=== PATIENT | female | born 1975 ===

== ENCOUNTER 2017-02-08 09:57 | Inpatient (IN) ==
[2017-02-02 10:35] LABS: Apearance,Urine CLEAR (Clear); Bacteria,Urine Occasional /HPF (Few); Bilirubin,Urine Negative (Negative); Blood, Urine Negative (Negative); Glucose,Urine (UA) >=500 mg/dL (Negative); Ketones,Urine Negative (Negative); Nitrite,Urine Negative (Negative); Protein,Urine Negative; RBC,Urine <1 /HPF (0-4); Urine Color Straw (Yellow); Urine Urobilinogen < 2.0 EU/DL (0.2-1.0); WBC,Urine <1 /HPF (0-6)
[2017-02-02 10:38] LABS: Basophils # 0.1 10*3/uL (0.0-0.2); Basophils % 0.6 % (0.0-0.8); Eosinophils # 0.3 10*3/uL (0.0-0.87); Eosinophils % 2.2 % (0.00-10.9); Hematocrit 40.5 VOL% (35.7-47.0); Hemoglobin 12.8 GM/DL (12.0-16.0); Immature Granulocytes % 0.5 %; Immature Granulocytes Absolute 0.06 #; Lymphocytes # 4.2 10*3/uL (1.4-4.0); Lymphocytes % 33.6 % (21.3-54.2); Mean Corpuscular HGB Conc 31.6 GM/DL (32-36); Mean Corpuscular Hemoglobin 28 PG (27-34); Mean Corpuscular Volume 87.1 FL (87-102); Mean Platelet Volume 9.7 FL (9.6-12.0); Monocytes # 0.8 10*3/uL (0.11-0.8); Monocytes % 6.2 % (1.7-12.7); Neutrophils # 7.1 10*3/uL (1.4-7.4); Neutrophils % 56.9 % (38.7-73.9); Platelet Count 415 T/CUMM (130-400); Red Blood Count 4.65 MC/CUMM (3.8-5.5); Red Cell Distribution Width 14.2 % (9.3-17.3); White Blood Count 12.4 T/CUMM (4-12)
--- NOTE | 2017-02-02 10:48 | EKG Report ---
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
[2017-02-02 11:08] LABS: Risk Ratio 3.7; VLDL CHOLESTEROL 22.2 MG/DL
[2017-02-02 11:09] LABS: Albumin 3.9 G/DL (3.4-5.0); Bilirubin,Total 0.6 MG/DL (0.2-1.0); Calcium 9.1 MG/DL (8.5-10.1); Osmolality,Calculated 282.5 MOS/KG (273-304); Potassium 4.9 MMOL/L (3.5-5.1); Total Protein 7.1 G/DL (6.4-8.3)
[2017-02-02 12:42] LABS: HIV Antigen/Antibody Result Nonreactive (Nonreactive)
--- NOTE | 2017-02-02 13:51 | XRay Report ---
Exam: Chest 2 views Date: February 02, 2017 at 10:41 AM Comparison: Chest x-ray portable July 21, 2009 Reason: Preoperative respiratory evaluation Findings: The cardiac silhouette is normal in size. No focal consolidation, pneumothorax or pleural effusion is identified. No acute osseous process is seen. Impression: No acute cardiopulmonary process is identified. PROCEDURE INTERPRETED AT [facility] DEPARTMENT OF RADIOLOGY Final Report Signed by: Dr. Shonda Farr
[~2017-02-08 09:57] MED LIST: AMPICILLIN/SULBACTAM 3,000 MG VIAL ONE; SODIUM CHLORIDE 0.9% 100 ML IV ONE
[2017-02-08] MEDS ORDERED: AMPICILLIN/SULBACTAM 3,000 MG in SODIUM CHLORIDE 0.9% 100 ML IV ONE (10:00)
--- NOTE | 2017-02-08 10:59 | History and Physical Update ---
History and Physical Update - History and Physical H&P was reviewed, the patient examined and there: are no changes in the patients condition since last H&P was completed.
[2017-02-08] MEDS ORDERED: FAMOTIDINE 20 MG TABLET PO STA (11:16)
[2017-02-08] MEDS ORDERED: DIAZEPAM 5 MG TABLET PO STA (11:16)
[2017-02-08] MEDS ORDERED: DIAZEPAM 5 MG TABLET ONE (11:18)
[2017-02-08] MEDS ORDERED: FAMOTIDINE 20 MG TABLET ONE (11:18)
[2017-02-08] MEDS: LACTATED RINGERS 1,000 ML IV SCH ×5 (11:30→21:30)
[2017-02-08 12:29] LABS: Apearance,Urine Slightly Hazy (Clear); Bilirubin,Urine Negative (Negative); Blood, Urine Negative (Negative); Glucose,Urine (UA) 50 mg/dL (Negative); Hyaline Casts,Urine 8 /LPF (0-3); Ketones,Urine Negative (Negative); Mucus,Urine Many /LPF (Occasional); Nitrite,Urine Negative (Negative); Protein,Urine 100 MG/DL; RBC,Urine 2 /HPF (0-4); Squamous Epithelial Cell,Urine Occasional /HPF (0-10); Urine Color Yellow (Yellow); Urine Specific Gravity 1.025 (1.001-1.035); Urine Urobilinogen < 2.0 EU/DL (0.2-1.0); WBC,Urine 1 /HPF (0-6)
[2017-02-08] MEDS ORDERED: ACETAMINOPHEN 325 MG TABLET PO PRN (14:32)
[2017-02-08] MEDS ORDERED: BENZOCAINE/MENTHOL LOZENGE 18/BOX PO PRN (14:32)
[2017-02-08] MEDS ORDERED: IBUPROFEN 800 MG TABLET PO PRN (14:32)
[2017-02-08] MEDS ORDERED: BISACODYL 10 MG SUPP RECTAL PRN (14:32)
[2017-02-08] MEDS ORDERED: MAGNESIUM HYDROXIDE SUSP 30 ML UDCUP PO PRN (14:32)
[2017-02-08] MEDS ORDERED: ONDANSETRON 4 MG/2 ML VIAL IV PRN ×2 (14:32→14:51)
[2017-02-08] MEDS ORDERED: GLUCAGON 1 MG VIAL IM PRN (14:34)
[2017-02-08] MEDS ORDERED: DEXTROSE 50% 25 GM/50 ML VIAL IV PRN (14:34)
[2017-02-08] MEDS ORDERED: NALOXONE 0.4 MG/ML VIAL IV PRN (14:34)
[2017-02-08] MEDS ORDERED: PROPOFOL 200 MG/20 ML VIAL IV ONE (14:48)
[2017-02-08] MEDS ORDERED: MIDAZOLAM 2 MG/2 ML VIAL ONE (14:49)
[2017-02-08] MEDS ORDERED: GLYCOPYRROLATE 0.4 MG/2 ML VIAL ONE (14:49)
[2017-02-08] MEDS ORDERED: ALBUMIN 5% 12.5 GM/250 ML VIAL IV ONE (14:49)
[2017-02-08] MEDS ORDERED: DESFLURANE 1 UNIT/15 MINUTE INH ONE (14:49)
[2017-02-08] MEDS ORDERED: ALBUTEROL 2.5 MG/3 ML NEB RESP TX ONE (14:49)
[2017-02-08] MEDS ORDERED: fentaNYL 100 MCG/2 ML VIAL ONE (14:49)
[2017-02-08] MEDS ORDERED: DEXAMETHASONE 10 MG/1 ML VIAL ONE (14:49)
[2017-02-08] MEDS ORDERED: ONDANSETRON 4 MG/2 ML VIAL ONE (14:49)
[2017-02-08] MEDS ORDERED: NEOSTIGMINE 10 MG/10 ML VIAL ONE (14:50)
[2017-02-08] MEDS ORDERED: ACETAMINOPHEN 1,000 MG/100 ML VIAL IV ONE (14:50)
[2017-02-08] MEDS ORDERED: LACTATED RINGERS 2,000 ML IV ONE (14:50)
[2017-02-08] MEDS ORDERED: ROCURONIUM 100 MG/10 ML VIAL IV ONE (14:50)
[2017-02-08] MEDS ORDERED: HYDROmorphone 2 MG/1 ML VIAL IV PRN (14:51)
[2017-02-08 15:11] LABS: Hematocrit 27.2 VOL% (35.7-47.0); Hemoglobin 8.6 GM/DL (12.0-16.0)
[2017-02-08] MEDS ORDERED: INSULIN REGULAR 100 UNIT/ML ONE (15:23)
[2017-02-08] MEDS ORDERED: INSULIN REGULAR 100 UNIT/ML SUBCUT ONE (15:25)
[2017-02-08] MEDS: HYDROmorphone PCA 30 MG/30 ML SYRINGE IV SCH ×2 (15:36→21:34)
[2017-02-08] MEDS ORDERED: SODIUM CHLORIDE 0.9% 250 ML IV SCH (17:00)
--- NOTE | 2017-02-08 17:54 | Operative Note ---
Date of procedure: 02/08/17 Procedure: Preoperative diagnosis: [] Pelvic pain Postoperative diagnosis: Same, pelvic adhesions, endometriosis Anesthesia: General. endotracheal anesthesia Estimated blood loss: [] 800 Surgeon: Dr. Wagoner Findings: [] Uterine varicosities, endometriosis, adhesions Complications: None Procedure: Robotic da Kale hysterectomy bilateral salpingo-oophorectomy, which was converted into a total abdominal hysterectomy and bilateral salpingo- oophorectomy. After the risk, benefits and alternatives were explained to the patient in detail and informed consent was obtained, the patient was taken to the operating room and placed in supine position. Achieving appropriate general endotracheal anesthesia, the patient was carefully repositioned in low lithotomy position in Serafin stirrups., Vagina and abdomen were prepped and draped in the usual sterile fashion. Was placed which revealed clear urine. Appropriate time out, a weighted speculum was placed in the vagina. The anterior lip of the cervix was grasped and the single-tooth tenaculum and the uterus sounded to 10 cm. A medium-sized Shira manipulator cup with a 8 cm stem with balloon occluder was attached to the Shira arch manipulator apparatus which was placed without difficulty and secured in the anterior and posterior lips of the cervix using 0 Vicryl suture. After regloving with the patient flat and an NG tube in place, a supraumbilical incision was made and while elevating on the anterior abdominal wall using a towel clip, a Veress needle was inserted through the supraumbilical incision and peritoneal space with insufflation of the abdomen with CO2 gas. The 4 mm pressure rapid insufflation was then performed to achieve a pneumoperitoneum of 5 L at 20 mm of pressure. While elevating on the anterior abdominal wall using a towel clip, a 12 mm trocar inserted through the supraumbilical incision and peritoneal space with appropriate entry confirmed by direct visualization via the laparoscope. There was no evidence of any damage to underlying structures. An 8 mm robotic trocar was placed after trans-illumination of the inferior epigastric vessels bilaterally and a 512 step trocar was placed in the left upper quadrant also under direct visualization without complications the patient was then placed in Trendelenburg and the da Kale robot successively side docked. The rest of the procedure was performed through the robotic console. On visualization of the pelvis[], both ureters were identified. The utero-ovarian ligaments were identified bilaterally and taken down using PK bipolar and monopolar scissors and double burn techniques and this was carried out to the round ligaments bilaterally on maintaining cephalic traction on the Shira manipulator. The bladder flap was created anterior along the lower uterine segment using monopolar scissors. And the uterine vessels were skeletonized bilaterally and dissected. The broad ligament was also dissected as well under direct visualization. The uterine vessels were taken down there was a significant number of uterine vessels that were dilated. And there was continuous bleeding from these vessels. Multiple attempts to use the vessel sealer, the bipolar forceps was unsuccessful to control the bleeding. Visualization was very difficult and it was also very difficult to use the handheld manipulator for the uterus to for adequate exposure. Because of the significant blood loss this part of the procedure was terminated and converted into a open procedure. The da Kale was undocked the patient was placed in supine position and we then proceeded to perform a open hysterectomy through a Pfannenstiel incision. Through the skin subcutaneous with a fascial erect abdominal muscle split in the midline abdominal pain was in her self-retaining retractor was then placed aside. The bowel was packed operative field. The uterus was grasped with a Issa tenaculum. Straight Farrah clamp was used along the remaining portion of the broad ligament. They were clamped cut and suture leg #1 Vicryl the cervical vaginal junction was identified. And cauterization was then performed at this time creating an opening into the vaginal vault scissors was then used to create the opening and extended all the way around circumscribing the cervix away from the vagina. There was liters that were noted in the pedicles from the from the laparoscopic procedure with these were also grasped clamped and also ligated with #2 Vicryl. And also with cauterization. The vaginal cuff were grasped at the angles with Allis clamps. They were closed with #1 Vicryl continuous locking stitch. Hemostasis was maintained irrigation was performed throughout the pelvic cavity there was some small raw surfaces that were also bleeding and a small vessel that was part of the lower uterine vessels that was also grasped with a Farrah clamp and ligated with #2-0 Vicryl. All the lap sponges were accounted for abdominal. Includes #2-0 Vicryl the fascia is proximal 0 Maxon and the skin was approximated with insulin sanjay. The puncture sites were identified there was no active bleeding and these were closed with sanjay. The urine was clear throughout the entire procedure this patient tolerated procedure well. She was explained the operative may take her room in stable condition. Surgeon / Physician: hSashi Wagoner Results - Labs CBC & BMP: 02/08/17 15:05 02/02/17 10:24 Discharge Plan - Discharge Medications No Action Cholecalciferol (Vitamin D3) [Vitamin D3] 10,000 unit PO Q7DAY Insulin Detemir [Levemir] 50 unit SUBCUT BEDTIME Insulin Aspart [NovoLOG] 7 unit SUBCUT BID Metformin HCl 500 mg PO BID Lisinopril 10 mg PO AC SUPPER - Follow Up or Referral - Forms/Instructions
[2017-02-08] MEDS ORDERED: INSULIN REGULAR 100 UNIT/ML SUBCUT SCH (18:00)
[2017-02-08] MEDS ORDERED: MEPERIDINE 25 MG/1 ML VIAL IV PRN (18:01)
[2017-02-08] MEDS ORDERED: MEPERIDINE 25 MG/1 ML VIAL ONE (18:03)
[2017-02-08] MEDS: INSULIN REGULAR 100 UNIT/ML SUBCUT SCH (20:21)
[2017-02-08 22:43] LABS: Hematocrit 35.6 VOL% (35.7-47.0); Hemoglobin 11.6 GM/DL (12.0-16.0)
[2017-02-09] MEDS: INSULIN REGULAR 100 UNIT/ML SUBCUT SCH ×4 (02:28→20:48)
[2017-02-09] MEDS: LACTATED RINGERS 1,000 ML IV SCH (04:25)
[2017-02-09 06:34] LABS: Basophils % 0.2 % (0.0-0.8); Eosinophils % 0.1 % (0.00-10.9); Hematocrit 32.2 VOL% (35.7-47.0); Hemoglobin 10.7 GM/DL (12.0-16.0); Immature Granulocytes % 0.7 %; Immature Granulocytes Absolute 0.12 #; Lymphocytes # 2.6 10*3/uL (1.4-4.0); Lymphocytes % 16.3 % (21.3-54.2); Mean Corpuscular HGB Conc 33.2 GM/DL (32-36); Mean Corpuscular Hemoglobin 28 PG (27-34); Mean Corpuscular Volume 83.6 FL (87-102); Mean Platelet Volume 9.5 FL (9.6-12.0); Monocytes % 12.6 % (1.7-12.7); Neutrophils # 11.3 10*3/uL (1.4-7.4); Neutrophils % 70.1 % (38.7-73.9); Platelet Count 263 T/CUMM (130-400); Red Blood Count 3.85 MC/CUMM (3.8-5.5); Red Cell Distribution Width 14.5 % (9.3-17.3); White Blood Count 16.2 T/CUMM (4-12)
[2017-02-09] MEDS: ceFAZolin 2,000 MG in PREMIX 1 EACH IV SCH ×3 (07:54→20:00)
--- NOTE | 2017-02-09 10:37 | Progress Note ---
Family Medicine PN Sub Interval history: Postoperative day #1 Status post abdominal hysterectomy, transfusion of 2 units of packed RBCs Abdominal incision looks great no evidence of hematoma or active bleeding. Extremities well within normal limits neurologic grossly intact Urine output is excellent Postoperative H&H is 10.7 and 32 Patient is tolerating clear liquids This patient will be ambulating today and, increasing her diet and will be initiated on iron therapy Exam (Progress Note) - Constitutional Vitals: Period Temp Pulse Resp BP Sys/Dillon Pulse Ox Last 24 Hr 97 F-98 F 72-99 16-20 93-143/53-85 97-100 Results - Labs CBC & BMP: 02/09/17 06:26 02/02/17 10:24 Quality Measures - VTE Contraindication to Pharmacological VTE Prophylaxis: Clinical assessment deems Pt at low risk, no prophalaxis needed
--- NOTE | 2017-02-09 12:26 | Pathology Report from [facility] ---
ACCESSION # : [id number] PATIENT NAME : Argelia Armijo ORDERING DR : KATELYNN POND MD CLINICAL HX: Pelvic pain - DUB - Fibroids POST-OP DX: Same SPECIMEN INFO: Uterus, cervix, right and left tubes and ovaries GROSS DESCRIPTION: The specimen is received in formalin labeled with the patient 's name "ARGELIA ARMIJO" and consists of a 146 gram uterus and cervix which measures 4.0 x 3.5 x 3.8 cm. The serosa is red-brock with a few adhesions noted. The cervix measures 3.7 cm. The cervical os measures 0.6 cm. The endocervical canal is brock and patent. The endometrial cavity is hemorrhagic with a mucosal thickness of 0.3 cm. Sectioning reveals changes which are possibly consistent with adenomyosis. The right ovary is yellow-red measuring 3.5 x 2.0 cm. Sectioning reveals a 0.8 cm hemorrhagic corpus luteum. The adjacent fallopian tube is fimbriated and has been previously transected. The tube measures 5.0 x 2.7 cm. The left ovary is yellow-pink measuring 2.2 x 2.3 cm. Sectioning reveals a 0.2 cm hemorrhagic cyst. The adjacent fallopian tube is fimbriated and has been previously transected. The tube measures 6.5 x 0.8 cm. Sections submitted: A cervix, B and C endomyometrium, D serosal adhesions , E right ovary and tube, F left ovary and tube. DIAGNOSIS FOR ARGELIA ARMIJO: UTERUS, HYSTERECTOMY: Chronic cervicitis with squamous metaplasia. Proliferative endometrium. Adenomyosis. Hemorrhagic corpus luteum cysts. Subcortical follicular cysts. Unremarkable fallopian tubes. SERVICE DATE: 02/08/2017 REPORT DATE: 02/09/2017 PATHOLOGIST: Rosa Hazel III, M.D. MTDD
[2017-02-09] MEDS ORDERED: oxyCODONE/ACETAMINOPHEN 5-325 MG TABLET PO PRN (13:39)
[2017-02-09] MEDS ORDERED: GLUCAGON 1 MG VIAL IM PRN (13:39)
[2017-02-09] MEDS ORDERED: DEXTROSE 50% 25 GM/50 ML VIAL IV PRN (13:39)
[2017-02-09] MEDS: FERROUS SULFATE 325 MG TABLET PO SCH (20:30)
[2017-02-09] MEDS: DOCUSATE SODIUM 100 MG CAPSULE PO PRN (20:30)
[2017-02-10] MEDS: ceFAZolin 2,000 MG in PREMIX 1 EACH IV SCH (02:30)
[2017-02-10] MEDS: INSULIN REGULAR 100 UNIT/ML SUBCUT SCH ×4 (02:40→20:35)
[2017-02-10] MEDS: oxyCODONE/ACETAMINOPHEN 5-325 MG TABLET PO PRN ×3 (02:45→14:35)
[2017-02-10] MEDS: FERROUS SULFATE 325 MG TABLET PO SCH ×2 (08:50→20:00)
[2017-02-10] MEDS ORDERED: METOCLOPRAMIDE 10 MG/2 ML VIAL ONE (09:48)
[2017-02-10] MEDS: METOCLOPRAMIDE 10 MG/2 ML VIAL IV SCH ×2 (10:16→18:49)
[2017-02-10] MEDS: FUROSEMIDE 40 MG/4 ML VIAL IV SCH ×2 (10:17→16:17)
[2017-02-10] MEDS ORDERED: GLUCAGON 1 MG VIAL IM PRN (15:59)
[2017-02-10] MEDS ORDERED: DEXTROSE 50% 25 GM/50 ML VIAL IV PRN (15:59)
[2017-02-10] MEDS: DOCUSATE SODIUM 100 MG CAPSULE PO PRN (20:00)
[2017-02-11] MEDS: INSULIN REGULAR 100 UNIT/ML SUBCUT SCH ×2 (02:33→08:04)
[2017-02-11] MEDS: METOCLOPRAMIDE 10 MG/2 ML VIAL IV SCH ×2 (02:35→09:56)
[2017-02-11 07:21] VITALS: BP 118/74
--- NOTE | 2017-02-11 08:51 | Discharge Summary ---
Hospital Course - Hospital Course Hospital Course: Postop day #3 Status post failed robotic hysterectomy, subsequent subsequently went an open DOROTHY/BSO. Postoperatively this patient received packed RBCs., She has had multiple bowel movements, she voided well, denies any chest pain palpitations or shortness of breath. Incision sites are intact Extremities well within normal limits neurologic grossly intact Status post hysterectomy will follow up in our office approximately 2 weeks. Specialty Discharge - Follow Up or Referrals Follow up with: Shashi Wagoner MD [Physician] - Discharge Plan - Discharge Data Condition at Discharge: Stable Discharge Diet: advance to your usual diet Activity: resume usual activities as tolerated, ambulate only with your walker, increase activity as tolerated Hygiene: may shower Driving: not until seen by doctor Contact your physician if you experience:: fever over 101, Shortness of breath, Bleeding - Discharge Medications New Ferrous Sulfate Tab [Feosol Original Tab] 325 mg PO BID #60 tablet Ibuprofen Tab [Motrin Tab] 800 mg PO Q8H PRN #60 tablet PRN Reason: Pain Mild To Moderate (1-7) HYDROcodone/ACETAMIN 5-325 [[place] 5-325] 2 tablet PO Q4H PRN #40 tablet PRN Reason: Pain Moderate (4-7) No Action Cholecalciferol (Vitamin D3) [Vitamin D3] 10,000 unit PO Q7DAY Insulin Detemir [Levemir] 50 unit SUBCUT BEDTIME Insulin Aspart [NovoLOG] 7 unit SUBCUT BID Metformin HCl 500 mg PO BID Lisinopril 10 mg PO AC SUPPER - Follow Up or Referral Follow Up: Shashi Wagoner MD [Physician] - - Forms/Instructions Instructions: Abdominal Hysterectomy (DC), Surgical Site Infections (GEN) Exam - Constitutional Vitals: Period Temp Pulse Resp BP Sys/Dillon Pulse Ox Last 24 Hr 97.1 F-99.5 F 92-118 18-20 107-118/62-74 97-99 Discharge Results Labs on day of discharge: Labs from last 24 hours 02/11/17 02/11/17 02/10/17 07:41 02:25 20:29 POC Glucose 194 H 162 H 295 H 02/10/17 14:27 POC Glucose 198 H DS: Provider Date of admission: 02/08/17 14:31 Primary care physician: Jus Reardon MD Attending physician on admission: Shashi Wagoner MD Consults: 02/08/17 16:39 Consult to Pharmacy [CONS] Routine Reason for Pharmacy Consult: Adjust Meds Renal Funct Discharging clinician: Shashi Wagoner MD
[2017-02-11] MEDS: oxyCODONE/ACETAMINOPHEN 5-325 MG TABLET PO PRN (09:50)
[2017-02-11] MEDS: FERROUS SULFATE 325 MG TABLET PO SCH (09:57)
--- NOTE | 2017-02-12 08:11 | Physician Query Form ---
CLICK EDIT DOCUMENT TO SELECT QUERY ANSWER --> OK --> SIGN Juanita Dang RN Clinical [employer] W) [phone] (f) [phone] [email or web address] PROVIDERS: Make your selection(s) from the choices in EACH section by typing an "x" and enter comments in the comment section. Please use your independent medical judgment in providing your response. This request does not imply that any particular answer is desired or expected. CLINICAL INDICATORS: (Providers should not edit this section) Based on documentation of "number of uterine vessels that were dilated. And there was continuous bleeding from these vessels. Multiple attempts to use the vessel sealer, the bipolar forceps was unsuccessful to control the bleeding. Visualization was very difficult and it was also very difficult to use the handheld manipulator for the uterus to for adequate exposure. Because of the significant blood loss this part of the procedure was terminated and converted into a open procedure." Transfused 2 units of PRBC Based on the above, could you clarify the appropriate diagnosis, if significant , that supports the above abnormalities and additional evaluation, monitoring, and/or treatment rendered: ( ) Acute blood loss anemia ( ) Did NOT have acute blood loss anemia ( ) Other, please specify: ( ) Clinically unable to determine COMMENTS: Use of terms such as suspected, likely, or probable (associated with a specific diagnosis that is being evaluated, monitored, or treated as if it exists) are acceptable and can be restated in the discharge summary if not ruled out. MTDD
== END 2017-02-11 13:40 | disposition home or self-care (01) | DRG 742 ==
LOC: N.OR 09:57 → N.SDSINP 10:36 → N.OB 14:31
PROVIDERS: ADMIT Obstetrics & Gynecology; ATTEND Obstetrics & Gynecology

== ENCOUNTER 2017-05-26 22:05 | Inpatient (IN) ==
--- NOTE | 2017-05-26 22:49 | Emergency Department Note ---
IAlbina Emily, am scribing for, and in the presence of, Waqar Emmanuel MD 22: 46. Cholo Khan Robert M, MD, personally performed the services described in this documentation, ascribed by Nanci Montemayor in my presence, and it is both accurate and complete . Arrival - Arrival Chief Complaint: Neuro ED Nursing Triage Note: Patient is a transfer from [facility] for further evaluation of left sided face numbness and headache with an onset of three hours ago. Patient has since resolved and denies any other complaints at the time of triage. History of DM. Mode of Arrival: Ambulatory Limitations: No Limitations - History of Present Illness HPI Narrative: Pt is a 42 y/o female who was transferred from [facility] for further evaluation of weakness in all extremities and numbness to left side of body that happened when leaving [facility] at 4pm today. Pt notes the numbness started in the left side of nose, into her mouth (lips & tongue), neck, shoulder, arm and leg. She noticed her speech wasn't the same and missing certain letters when pronounced, along with unable to lift objects. Pt denies abnormal gait or any N/V with episode, in which she states it lasted 3 hours (until 7pm). 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 Onset (ago): hour(s) Consistency: intermittent, now resolved Severity: mild, moderate Severity scale (1-10): 4 Date of Last Menstrual Period: hysterectomy Allergies/Adverse Reactions: Allergies Allergy/AdvReac Type Severity Reaction Status Date / Time No Known Allergies Allergy Verified 02/08/17 10:48 Home Medications: Home Medications Medication Instructions Recorded Confirmed Type Cholecalciferol (Vitamin D3) 10,000 unit PO Q7DAY 02/02/17 02/08/17 History [Vitamin D3] Insulin Aspart [NovoLOG] 7 unit SUBCUT BID 02/02/17 02/08/17 History Insulin Detemir [Levemir] 50 unit SUBCUT BEDTIME 02/02/17 02/08/17 History Lisinopril 10 mg PO AC SUPPER 02/02/17 02/08/17 History Metformin HCl 500 mg PO BID 02/02/17 02/08/17 History Ferrous Sulfate Tab [Feosol 325 mg PO BID #60 tablet 02/11/17 Rx Original Tab] HYDROcodone/ACETAMIN 5-325 [[place] 2 tablet PO Q4H PRN #40 tablet 02/11/17 Rx 5-325] Ibuprofen Tab [Motrin Tab] 800 mg PO Q8H PRN #60 tablet 02/11/17 Rx Review of System - Review of System 12 point system: reviewed and no additional remarkable complaints except as stated - Review of System Constitutional: Absent: chills, fever, weakness Respiratory: Absent: cough, respiratory distress Cardiovascular: Absent: chest pain, syncope Gastrointestinal: Absent: abdominal pain, nausea, vomiting Neurological: Present: headache (mild), weakness (now resolved but all extremities), numbness (left side of body, now resolved), other (different speech). Absent: paresthesias, confusion, abnormal gait Medical,Surgical,& Family Hx - Medical History Cardio: History of: Hypertension Neurology: No history of: Seizures HEENT: History of: Eye Problem (glasses), Dental Problems (bridge) Endocrine: History of: Diabetes Mellitus (IDDM), Diabetes Mellitus (NIDDM) Genitourinary: History of: Problems (hx hematuria too much protein dr silva last check up was fine) - Surgical History Reproductive Surgeries: Surgical HX of;: Section (x3), Gynecologic Surgery, Hysterectomy (02/08/17) - Family History Family History: Reports;: Family Diabetes (grandmother), Family Hypertension ( grandmother mom) - Social History Smoking Status: Current every day smoker Frequency of Alcohol Use: None Type of Drug Use: None Functional capacity: independent ambulation Exam Vital Signs: Vital Signs Temperature 97.3 F L 05/26/17 22:10 Pulse Rate 78 05/26/17 22:10 Respiratory Rate 20 05/26/17 22:10 Blood Pressure 115/73 05/26/17 22:10 O2 Sat by Pulse Oximetry 96 05/26/17 22:10 - General General appearance: alert, in no apparent distress - Head Head exam: Present: atraumatic, normocephalic - Eye Eye exam: Present: PERRL, EOMI - ENT ENT exam: Present: normal oropharynx, mucous membranes moist. Absent: mucous membranes dry - Neck Neck exam: Present: full ROM, trachea midline. Absent: tenderness - Chest Chest inspection: Present: symmetric chest wall rise. Absent: tenderness - Respiratory Respiratory exam: Present: normal lung sounds bilaterally. Absent: accessory muscle use, respiratory distress - Cardiovascular Cardiovascular exam: Present: regular rate, normal rhythm, normal heart sounds - Abdominal Exam Abdominal exam: Present: soft, normal bowel sounds. Absent: tenderness - Extremities Exam Extremities exam: Present: full ROM. Absent: tenderness, pedal edema - Neurological Exam Neurological exam: Present: alert, oriented X3, CN II-XII intact. Absent: motor sensory deficit - Psychiatric Psychiatric exam: Present: normal affect, normal mood - Skin Skin exam: Present: warm, dry Course - Reevaluation(s) Reevaluation #1: The patient is clinically stable and there is no reason for her to be in the emergency department to wait for labs of another patient. I am going to admit her to telemetry under Dr. Jasmine's care and the floor can notify her of the arrival of the patient. Time: 22:58 - Consultations Consultation #1: I called Dr. Sher to admit the patient and she wants me to wait until labs on a separate patient are completely back before I call her for this patient. Time: 22:50 Time: 22:57 Disposition Clinical Impression: TIA (transient ischemic attack) Case discussed with: patient, patient's family Disposition: Still a Patient Condition: Stable Time of Disposition: 22:58
[2017-05-26] MEDS ORDERED: ONDANSETRON 4 MG/2 ML VIAL IV PRN (22:59)
[2017-05-26] MEDS ORDERED: ACETAMINOPHEN 500 MG TABLET PO PRN (22:59)
--- NOTE | 2017-05-27 00:10 | Hospitalist History & Physical ---
Assessment and Plan (1) TIA (transient ischemic attack) Status: Acute Assessment and plan: Patient had a left sided numbness, and bilateral leg weakness, all which have resolved leaving a residual mild headaches. These symptoms may also be due to possibly Migraine headaches to r/o pseudotumor cerebri Plan Stroke work up MRI/Bilateral carotid USS ASA Lovenox Pain meds Echo Lipids TSH, Vit B12, folate levels Neuro consult in am Cardiac enzymes Current Visit: Yes (2) Diabetes mellitus Status: Acute Assessment and plan: Resume home meds, SSC, accu cheks HbA1c level Current Visit: Yes (3) Smoking Status: Acute Assessment and plan: Counseled to quit Nicotine patch Current Visit: Yes (4) Headache Status: Acute Assessment and plan: Patient had been having recurrent headaches x1 month. ? Migraines to r/o pseudotumor cerebri Plan Neuro to evaluate jose meds/ anti emetics Current Visit: Yes History of Present Illness Chief complaint: left sided nubness, headaches History of present illness: Ms. Felix is a 42 year old female with a history of diabetes, known smoker , mildly obese, s/p hysterectomy on oral contraceptives who was transferred from [facility] for evaluation of left sided numbness and bilateral leg weakness. Patient states she has been having a headache daily for about 1month. Today at around 4-4.30pm, she noticed her legs were weak.Later on, her left face became numb and numbness then spread to her left neck, arm and leg. She also noticed her speech wasn't the same though she had no problem swallowing.She had a headache throughout the episode. She had a similar episode last week Wednesday and she said she slept it off. She denies a history of migraine headaches, no history of TIA vs stroke in the past. No history of dizziness, nausea, vomiting , chestpain or tightness.By the time I saw her in the ER, the symptoms had improved leaving a mild headache. CT head done at the outside facility showed no acute changes. UDS, electrolytes, cardiac enzymes, UA, EKG were all unremarkable. She was given some pain meds, zofran and protonix here in the ER. Home Medications Medication Instructions Recorded Confirmed Type Cholecalciferol (Vitamin D3) 10,000 unit PO Q702/02/17 05/26/17 History [Vitamin D3] Insulin Aspart [NovoLOG] 7 unit SUBCUT BID 02/02/17 05/26/17 History Insulin Detemir [Levemir] 50 unit SUBCUT BEDTIME 02/02/17 05/26/17 History Lisinopril 10 mg PO AC SUPPER 02/02/17 05/26/17 History Metformin HCl 500 mg PO BID 02/02/17 05/26/17 History Ferrous Sulfate Tab [Feosol 325 mg PO BID #60 tablet 02/11/17 05/26/17 Rx Original Tab] HYDROcodone/ACETAMIN 5-325 [[place] 2 tablet PO Q4H PRN #40 tablet 02/11/17 Rx 5-325] Ibuprofen Tab [Motrin Tab] 800 mg PO Q8H PRN #60 tablet 02/11/17 05/26/17 Rx Allergies Allergy/AdvReac Type Severity Reaction Status Date / Time No Known Allergies Allergy Verified 02/08/17 10:48 Medical,Surgical,& Family Hx - Medical History Cardio: History of: Hypertension Neurology: No history of: Seizures HEENT: History of: Eye Problem (glasses), Dental Problems (bridge) Endocrine: History of: Diabetes Mellitus (IDDM), Diabetes Mellitus (NIDDM) Genitourinary: History of: Problems (hx hematuria too much protein dr silva last check up was fine) - Surgical History Reproductive Surgeries: Surgical HX of;: Section (x3), Gynecologic Surgery, Hysterectomy (02/08/17) - Family History Family History: Reports;: Family Diabetes (grandmother), Family Hypertension ( grandmother mom) - Social History Smoking Status: Current every day smoker Frequency of Alcohol Use: None Type of Drug Use: None 12 point system: reviewed and no additional remarkable complaints except as stated Exam - Constitutional Vitals: Period Temp Pulse Resp BP Sys/Dillon Pulse Ox Last 24 Hr 97.3 F-97.3 F 78-78 18-20 115-115/73-73 96 General appearance: no acute distress - Eye Eye exam: Present: EOMI - Respiratory Respiratory exam: Present: clear to auscultation bilaterally - Cardiovascular Cardiovascular exam: Present: regular rate and rhythm - GI/Abdominal GI/Abdominal exam: Present: normal bowel sounds - Extremities Exam Extremities exam: Present: normal inspection - Neurological Exam Neurological exam: Present: alert, oriented X3 Results - Labs Lab Results: I have reviewed the past 24 hour labs
[2017-05-27] MEDS ORDERED: MORPHINE 2 MG/1 ML SYRINGE IV PRN (00:43)
[2017-05-27] MEDS ORDERED: GLUCAGON 1 MG VIAL IM PRN ×2 (00:43→09:17)
[2017-05-27] MEDS ORDERED: ONDANSETRON 4 MG/2 ML VIAL IV PRN (00:43)
[2017-05-27] MEDS ORDERED: DEXTROSE 50% 25 GM/50 ML VIAL IV PRN ×2 (00:43→09:17)
[2017-05-27 01:46] LABS: Troponin I Only < 0.015 NG/ML (0.00-0.045)
[2017-05-27 01:59] LABS: Risk Ratio 4.08; VLDL CHOLESTEROL 39.2 MG/DL
[2017-05-27 05:19] LABS: Basophils # 0.1 10*3/uL (0.0-0.2); Basophils % 0.6 % (0.0-0.8); Eosinophils # 0.3 10*3/uL (0.0-0.87); Eosinophils % 3.2 % (0.00-10.9); Hematocrit 39.1 VOL% (35.7-47.0); Hemoglobin 12.9 GM/DL (12.0-16.0); Immature Granulocytes % 0.3 %; Immature Granulocytes Absolute 0.03 #; Lymphocytes # 4.2 10*3/uL (1.4-4.0); Lymphocytes % 40.6 % (21.3-54.2); Mean Corpuscular Hemoglobin 28 PG (27-34); Mean Corpuscular Volume 84.1 FL (87-102); Mean Platelet Volume 9.9 FL (9.6-12.0); Monocytes # 0.9 10*3/uL (0.11-0.8); Monocytes % 8.9 % (1.7-12.7); Neutrophils # 4.8 10*3/uL (1.4-7.4); Neutrophils % 46.4 % (38.7-73.9); Platelet Count 352 T/CUMM (130-400); Red Blood Count 4.65 MC/CUMM (3.8-5.5); Red Cell Distribution Width 13.9 % (9.3-17.3); White Blood Count 10.3 T/CUMM (4-12)
[2017-05-27 05:52] LABS: Alanine Aminotransferase 26 U/L (13-56); Albumin 3.5 G/DL (3.4-5.0); Alkaline Phosphatase 89 U/L (45-117); Aspartate Amino Transferase 18 U/L (0-37); Blood Urea Nitrogen 9 MG/DL (7-18); Glucose 181 MG/DL (74-106); Osmolality,Calculated 284.3 MOS/KG (273-304); Potassium 4.4 MMOL/L (3.5-5.1); Sodium 141 MMOL/L (136-145); Total Protein 6.8 G/DL (6.4-8.3); Troponin I Only < 0.015 NG/ML (0.00-0.045)
[2017-05-27 06:20] LABS: Apearance,Urine CLEAR (Clear); Bilirubin,Urine Negative (Negative); Blood, Urine Negative (Negative); Glucose,Urine (UA) Negative (Negative); Ketones,Urine Negative (Negative); Nitrite,Urine Negative (Negative); Protein,Urine Negative; RBC,Urine <1 /HPF (0-4); Squamous Epithelial Cell,Urine Occasional /HPF (0-10); Urine Color Straw (Yellow); Urine Specific Gravity 1.006 (1.001-1.035); Urine Urobilinogen < 2.0 EU/DL (0.2-1.0); WBC,Urine <1 /HPF (0-6)
[2017-05-27] MEDS: INSULIN REGULAR 100 UNIT/ML SUBCUT SCH ×3 (06:31→18:06)
--- NOTE | 2017-05-27 07:28 | Ultrasound Report ---
Exam:US carotid duplex BI Date:05/27/2017 12:43 AM Indication: TIA Color Doppler, wave form analysis, and grayscale analysis of the cervical carotid arteries was performed. There is no significant plaque in either carotid bulb. Waveform analysis shows proper directional flow of the cervical carotid arteries. There is antegrade flow in either vertebral artery. The distal right ICA measures 4.4 mm diameter; the left measures 4.0 mm diameter. Right Side Flow velocities centimeters per second Common carotid artery: 69 Proximal ICA:87.2 Distal ICA:101.5 External carotid artery:62.4 Vertebral artery:49.4 ICA/CCA ratio:1.5 Left SIde Flow velocities centimeters per second Common carotid artery 68 Proximal ICA:81.9 Distal ICA:71.5 External carotid artery:74.1 Vertebral artery:41.6 ICA/CCA ratio:1.2 There is 0-15% diameter reduction narrowing of either internal carotid artery using indirect NASCET criteria. Ultrasound images were captured and archived. Impression: No hemodynamically significant internal carotid artery stenosis PROCEDURE INTERPRETED AT [facility] DEPARTMENT OF RADIOLOGY Final Report Signed by: Dr. Kerri Szymanski
[2017-05-27] MEDS: PANTOPRAZOLE 40 MG TABLET PO SCH (09:01)
[2017-05-27] MEDS: ENOXAPARIN 40 MG/0.4 ML SYRINGE SUBCUT SCH (09:01)
[2017-05-27] MEDS: ASPIRIN 325 MG TABLET PO SCH (09:01)
[2017-05-27] MEDS: FERROUS SULFATE 325 MG TABLET PO SCH ×2 (09:01→21:30)
--- NOTE | 2017-05-27 11:32 | Magnetic Resonance Report ---
Exam: MR head/brain wo con Date: 05/27/2017 Comparison: CT brain 05/26/2017 Indication: TIA Technical: 1.5 Avis magnet Axial T1 pre-and , ADC, DWI, FLAIR, gradient echo and FSE T2 Sagittal T1 precontrast, FLAIR Coronal FSE T2 Contrast: 0 cc Dotarem Findings: Exam reveals no acute ADC/ diffusion imaging abnormality. The brainstem exhibit normal signal characteristics. The cerebellum reveals suggestion of minimal cerebellar ectopia The cerebral hemispheres exhibit normal signal characteristics. The corpus callosum is unremarkable. The seventh and eighth cranial nerves and cerebral pontine angles are intact. The pituitary gland is flattened with component of intrasella syndrome present. The infundibulum and optic chiasm are unremarkable.. The paranasal sinuses exhibit minimal inflammation in the ethmoid sinuses bilaterally. Remaining paranasal sinuses demonstrate normal signal characteristics. The mastoid sinuses are unremarkable. The globes and intra-and extraconal spaces are unremarkable. Impression: 1. Minimal cerebellar ectopia 2. No obvious acute hemorrhage, infarction or mass effect. 2. Minimal inflammation in the ethmoid sinuses. 3. No obvious syrinx demonstrated in the proximal cord 4. Component of empty sella syndrome PROCEDURE INTERPRETED AT [facility] DEPARTMENT OF RADIOLOGY Final Report Signed by: Dr. Santos Stafford
--- NOTE | 2017-05-27 14:14 | Hospitalist Progress Note ---
Assessment and Plan (1) TIA (transient ischemic attack) Status: Acute Assessment and plan: Workup underway. Follow-up echo follow carotids follow-up MRI Current Visit: Yes (2) Diabetes mellitus Status: Acute Assessment and plan: Hemoglobin A1c 8.9 Current Visit: Yes (3) Smoking Status: Acute Current Visit: Yes Hospitalist: Subjective Interval history: Patient seen and examined. No acute events overnight. Case discussed with nursing staff. Labs reviewed. Patient admitted for TIA symptoms. MRI and carotid and echo pending. Symptoms have resolved. Exam - Constitutional Vitals: Period Temp Pulse Resp BP Sys/Dillon Pulse Ox Last 24 Hr 97 F-97.8 F 76-82 18-20 96-137/52-77 96-100 Exam: Constitutional System: No distress. No tremulousness. Head: Normocephalic, atraumatic. Ears, Nose and Throat System: No pain or tenderness. No epistaxis or discharge Eyes System: Pupils equal, round, and reactive. Extraocular muscles intact. Neck: Supple, without adenopathy, No jugular venous distention. No thyromegaly, neck mass, or prior surgery apparent. Respiratory System: Chest clear to auscultation. Cardiovascular System: Heart with regular rate and rhythm. No murmur. GI System: Abdomen soft, nontender. Normo active bowel sounds present. Musculoskeletal System: limbs with no pedal edema. Full distal pulses. Neurological System: No discernable sensory deficit. No aphasia Psychiatric System: Conversation is rational Results - Labs CBC & BMP: 05/27/17 05:00 05/27/17 05:00 Lab Results: I have reviewed the past 24 hour labs
--- NOTE | 2017-05-27 16:38 | Neurology Consult Note ---
History of Present Illness History of present illness: Ms. Felix is a 42 year old lady with a history of diabetes , known smoker, mildly obese, s/p hysterectomy on oral contraceptives who was transferred from [facility] for evaluation of left sided numbness and bilateral leg weakness. Patient states she has been having a headache daily for about 1month. Today at around 4-4.30pm, she noticed her legs were weak.Later on, her left face became numb and numbness then spread to her left neck, arm and leg. She also noticed her speech wasn't the same though she had no problem swallowing.She had a headache throughout the episode. She had a similar episode last week Wednesday and she said she slept it off. She had similar episode 10 years ago. She denies a history of migraine headaches, no history of TIA vs stroke in the past. Symptoms resolved and 4 hours. She has no more numbness and tingling. She is back to her baseline. MRI of the brain reveals no acute abnormalities but questionable empty sella syndrome Home Medications Medication Instructions Recorded Confirmed Type Cholecalciferol (Vitamin D3) 10,000 unit PO Q7DAY 02/02/17 05/26/17 History [Vitamin D3] Insulin Aspart [NovoLOG] 7 unit SUBCUT BID 02/02/17 05/26/17 History Insulin Detemir [Levemir] 50 unit SUBCUT BEDTIME 02/02/17 05/26/17 History Lisinopril 10 mg PO AC SUPPER 02/02/17 05/26/17 History Metformin HCl 500 mg PO BID 02/02/17 05/26/17 History Ferrous Sulfate Tab [Feosol 325 mg PO BID #60 tablet 02/11/17 05/26/17 Rx Original Tab] HYDROcodone/ACETAMIN 5-325 [[place] 2 tablet PO Q4H PRN #40 tablet 02/11/17 Rx 5-325] Ibuprofen Tab [Motrin Tab] 800 mg PO Q8H PRN #60 tablet 02/11/17 05/26/17 Rx Allergies Allergy/AdvReac Type Severity Reaction Status Date / Time No Known Allergies Allergy Verified 02/08/17 10:48 12 point system: reviewed and no additional remarkable complaints except as stated Medical,Surgical,& Family Hx - Medical History Cardio: History of: Hypertension Neurology: No history of: Seizures HEENT: History of: Eye Problem (glasses), Dental Problems (bridge) Endocrine: History of: Diabetes Mellitus (IDDM), Diabetes Mellitus (NIDDM) Genitourinary: History of: Problems (hx hematuria too much protein dr silva last check up was fine) - Surgical History Reproductive Surgeries: Surgical HX of;: Section (x3), Gynecologic Surgery, Hysterectomy (02/08/17) - Family History Family History: Reports;: Family Diabetes (grandmother), Family Hypertension ( grandmother mom) - Social History Smoking Status: Current every day smoker Frequency of Alcohol Use: None Type of Drug Use: None Exam - Constitutional Vitals: Period Temp Pulse Resp BP Sys/Dillon Pulse Ox Last 24 Hr 97 F-97.8 F 76-82 18-20 96-137/52-77 96-100 Exam: GENERAL: Patient is in no acute distress. NECK: Neck is supple. There is no JVD. No carotid bruits present. No thyroid masses. CVS: First and second heart sounds are normal. There is no S3 present. Regular rate and rhythm. RESPIRATORY: Lungs are clear to auscultation without any rales or rhonchi. ABDOMEN: Soft and non-tender. Bowel sounds are present. There is no hepatosplenomegaly. EXT: There is no palpable edema. Peripheral pulses are present. Skin: No rashes Central Nervous system: General: Alert, awake and Oriented x 3 Speech: Fluent Comprehension: Intact and normal Facial expressions: Normal Cranial Nerves: CN1/Olfactory: Normal CN II/ Optic: Normal, Visual Sharpe unreliable CN III, and : JESSICA & EOMI CN V: Normal & intact CN VII: face is symmetric CNVIII: Normal CN XI/X/XI/XII: Intact and Normal Motor: Bulk and Tone is normal. Strength in the right 5/5 Strength in the left 5/5 Sensory: Grossly intact for all the modalities of PP, LT and temp sense Reflexes: 1+ and symmetrical Cerebellar function: Normal finger to nose and heel to castellano testing. Toes: Equivocal Gait: Normal heel to heel and toe to toe and tandem walk. Results - Labs CBC & BMP: 05/27/17 05:00 05/27/17 05:00 Assessment and Plan (1) Complicated migraine Status: Acute Assessment and plan: Topamax 25 mg p.o. daily Fioricet 1 tablet every 4 to every 6. Continue aspirin a day Follow-up in 4 Current Visit: Yes Specialty Discharge - Follow Up or Referrals Follow up with: Pravin Mijares MD [Physician] - 1 Month
[2017-05-27] MEDS ORDERED: BUTALBITAL/ACETAMIN/CAFFEINE 50-325-40 MG TABLET PO PRN (16:42)
--- NOTE | 2017-05-27 18:26 | ECHO Report ---
Argelia Felix Exam Date: 05/27/2017 08:28 Referring Physician: Technologist: loulou Goldsmith ARDMS, RVT Age: 42 Ht (in): 60 Wt (lb): 162 Gender: F Exam Location: [facility] Echo Indications: TIA, Diabetes, Headache, Smoker BP: 96 / 52 HR: 73 Rhythm: Sinus Technical Quality: good IMPRESSIONS Left ventricular ejection fraction is estimated at 60 %. Diastolic parameters are normal. Peak regurgitant velocity is 2.4 m/s corresponds of the right ventricular systolic pressure of 24 mmHg plus the right atrial pressure. MEASUREMENTS (Male / Female) Normal Values 2D ECHO LV Diastolic Diameter PLAX 4.6 cm 4.2 - 5.9 / 3.9 - 5.3 cm LV Systolic Diameter PLAX 2.8 cm LV Fractional Shortening PLAX 40.1 % IVS Diastolic Thickness 0.8 cm 0.6 - 1.0 / 0.6 - 0.9 cm LVPW Diastolic Thickness 0.8 cm 0.6 - 1.0 / 0.6 - 0.9 cm RV Internal Dim ED PLAX 2.9 cm Aortic Root Diameter 3.1 cm LA Systolic Diameter LX 3.0 cm 3.0 - 4.0 / 2.7 - 3.8 cm DOPPLER TR Peak Velocity 271.0 cm/s TR Peak Gradient 29.4 mmHg FINDINGS Left Ventricle Normal left ventricular cavity size. Normal left ventricular wall thickness. Left ventricular ejection fraction is estimated at 60 %. There is no regional wall motion abnormality. Diastolic parameters are normal Right Ventricle The right ventricle is normal in size and function. Right Atrium The right atrium is normal in size. Left Atrium The left atrium is normal in size. Mitral Valve Morphologically normal mitral valve without significant stenosis or prolapse. There is no mitral regurgitation. Aortic Valve Morphologically normal aortic valve without significant sclerosis or stenosis. There is no aortic regurgitation. Tricuspid Valve Morphologically normal tricuspid valve. Mild tricuspid valve regurgitation. Peak regurgitant velocity is 2.4 m/s corresponds of the right ventricular systolic pressure of 24 mmHg plus the right atrial pressure Pulmonic Valve Morphologically normal pulmonic valve without significant stenosis. There is no pulmonic regurgitation. Pericardium Normal pericardium without effusion. Aorta Normal ascending aorta dimension. Kelsey Rodriguez (Electronically Signed) Final Date: 27 May 2017 18:25
[2017-05-27] MEDS ORDERED: ATORVASTATIN 20 MG TABLET PO SCH (21:00)
[2017-05-27] MEDS ORDERED: TOPIRAMATE 25 MG TABLET PO SCH (21:00)
[2017-05-28] MEDS: INSULIN REGULAR 100 UNIT/ML SUBCUT SCH ×3 (00:19→12:52)
[2017-05-28] MEDS ORDERED: DEXTROSE 50% 25 GM/50 ML SYRINGE IV PRN (08:30)
[2017-05-28] MEDS: ENOXAPARIN 40 MG/0.4 ML SYRINGE SUBCUT SCH (10:07)
[2017-05-28] MEDS: ASPIRIN 325 MG TABLET PO SCH (10:07)
[2017-05-28] MEDS: PANTOPRAZOLE 40 MG TABLET PO SCH (10:07)
[2017-05-28] MEDS: FERROUS SULFATE 325 MG TABLET PO SCH (10:07)
[2017-05-28 12:23] VITALS: BP 100/53
--- NOTE | 2017-05-28 14:38 | Discharge Summary ---
Specialty Discharge - Follow Up or Referrals Follow up with: Pravin Mijares MD [Physician] - 1 Month Discharge Plan - Discharge Data Condition at Discharge: Stable Discharge Diet: diabetic diet Activity: resume usual activities as tolerated Hygiene: no restrictions, may shower Weight Bearing at Discharge: full weight bearing Driving: not until seen by doctor Contact your physician if you experience:: fever over 101, Nausea/Vomiting, Shortness of breath - Discharge Medications New Aspirin Tab 325 mg PO DAILY #30 tablet Butalbital/Acet/Caff 50-325-40 [Fioricet 50-325-40 mg Tablet] 1 tablet PO Q6H PRN #30 tablet PRN Reason: Headache Atorvastatin [Lipitor] 20 mg PO BEDTIME #30 tablet Continue Cholecalciferol (Vitamin D3) [Vitamin D3] 10,000 unit PO Q7DAY Ferrous Sulfate Tab [Feosol Original Tab] 325 mg PO BID #60 tablet Ibuprofen Tab [Motrin Tab] 800 mg PO Q8H PRN #60 tablet PRN Reason: Pain Mild To Moderate (1-7) Insulin Detemir [Levemir] 50 unit SUBCUT BEDTIME Insulin Aspart [NovoLOG] 7 unit SUBCUT BID Metformin HCl 500 mg PO BID Lisinopril 10 mg PO AC SUPPER HYDROcodone/ACETAMIN 5-325 [[place] 5-325] 2 tablet PO Q4H PRN #40 tablet PRN Reason: Pain Moderate (4-7) - Follow Up or Referral Follow Up: Pravin Mijares MD [Physician] - 1 Month - Forms/Instructions Exam - Constitutional Vitals: Period Temp Pulse Resp BP Sys/Dillon Pulse Ox Last 24 Hr 97 F-98.2 F 70-87 18-20 97-107/53-68 98-100 Discharge Results Labs on day of discharge: Labs from last 24 hours 05/28/17 05/28/17 05/28/17 12:48 07:17 05:45 POC Glucose 197 H 249 H 273 H 05/28/17 05/27/17 00:10 17:58 POC Glucose 308 H 265 H DS: Provider Date of admission: 05/26/17 22:59 Primary care physician: Jus Reardon MD Attending physician on admission: Ethel Jasmine MD Consults: 05/27/17 00:43 Consult to Physician [CONS] Routine Comment: ?TIA Consulting Provider: Pravin Mijares When should Consulting Provider be notified: In am Consult to Specialist Group: Neurology When should Consulting Provider be notified: In am 05/27/17 14:18 Consult to [facility], Educator [CONS] Routine Reason for Board Of Directors: Diabetes Education Discharging clinician: Zack Hooks MD
[2017-06-03] MEDS ORDERED: CHOLECALCIFEROL 1,000 UNIT TABLET PO SCH (09:00)
== END 2017-05-28 16:21 | disposition home or self-care (01) | DRG 103 ==
LOC: EDBD → EDUNIT# → N.ED 22:05 → SUATTDRO 22:59 → N.EDINP 22:59 → N.TELEN 05-27 00:01
PROVIDERS: ADMIT Internal Medicine; ATTEND Hospitalist